=== PATIENT | male | born 1980 | race Caucasian/White ===

== ENCOUNTER 2016-07-12 16:27 | Emergency (ER) | payer OTHER ==
[2016-07-12 16:32] VITALS: BMI 31.9
[2016-07-12] MEDS ORDERED: KETOROLAC TROMETHAMINE 60 MG/2 ML VIAL IM ONE (17:56)
[2016-07-12] MEDS ORDERED: KETOROLAC TROMETHAMINE 60 MG/2 ML VIAL ONE (18:07)
--- NOTE | 2016-07-12 18:16 | PDOC ---
History of Present Illness - General Chief Complaint: Pain Stated Complaint: KIDNEY PAIN History Source: Patient Exam Limitations: No Limitations - History of Present Illness Travel History: No Initial Comments: 07/12/16 18:11 HPI: This 36-year-old male presents to the emergency room with complaints of left sided kidney pain. He apparently has had a kidney stone in the past. He's noted to have one in August 2015 according to the patient. He has excruciating pain when he initially came into the emergency room. Since then it has now subsided without any help of pain medications. He is unaware whether or not he has passed any kidney stone. He is able to urinate clear yellow urine. Chief Compliant: Left CV tenderness Pain location: Duration: Yesterday but has had it on and off for quite some time Modifying factors: Kidney stones in the past Quality: Sharp Radiating: To the left abdominal area Severity: Was a 10 out of 10 but now a 5 out of 10 Time: intermittent PMH: Kidney stones FH: Pt has not recently traveled outside the country in the last 30 days. Pt has not been in contact with people who have traveled out of the country, in contact with people who have been ill with fever, n, v, d. SH: smoking use: NONE illicit drug use: NONE alcohol use: NONE employment/educational status: sexual history: PSH: Home med use noted on AUG Allergies: NKA Immunizations: PCP: Does not have one Past History - Past Medical History Allergies/Adverse Reactions: Allergies Allergy/AdvReac Type Severity Reaction Status Date / Time No Known Allergies Allergy Verified 07/12/16 16:33 Home Medications: Ambulatory Orders Oxycodone HCl/Acetaminophen [Percocet 5/325 -] 1 - 2 tab PO Q4H #20 tablet 12/16 Sulfamethoxazole/Trimethoprim [Bactrim Ds -] 1 tab PO BID #20 tablet 12/16/14 Kidney Stones: Yes - Immunization History Immunization Up to Date: Yes - Psycho/Social/Smoking Cessation Hx Anxiety: No Suicidal Ideation: No Smoking History: Never smoked Hx Alcohol Use: Yes (social) Drug/Substance Use Hx: No Substance Use Type: Marijuana Review of Systems - Review of Systems Able to Perform ROS?: Yes Comments:: 07/12/16 18:12 General statement: Left-sided abdominal pain sharp radiating to the kidney Hematology: neg history of bleeding/blood thinners Skin: Neg for lesions, rash, bruising. HEENT: Neg symptoms Respiratory: Neg SOB or difficulty in breathing Cardiac: Neg chest pain GI: Neg pain, n/v : Neg problems on voiding as CV tenderness to the left side MS: Neg for joint pain/stiffness, no edema Neuro: Neg for LOC, weakness, Endocrine: Neg for excess thirst/hunger, cold/heat intolerance, excess sweating Allergies: Neg for allergies *Physical Exam - Vital Signs Last Vital Signs Temp Pulse Resp BP Pulse Ox 97.3 F L 93 H 20 128/75 100 07/12/16 16:30 07/12/16 16:30 07/12/16 16:30 07/12/16 16:30 07/12/16 16:30 - Physical Exam Comments: 07/12/16 18:13 General Appearance: This well appearing 86-year-old male V/S: hemodynamically stable, afebrile Skin: WNL of pt's skin color, no signs of pallor, mottling, cyanosis Head:symmetrical Eyes: EOM's intact, PERRLA Ears: denies pain Nose: patent Throat: lips, teeth, gums, tongue, buccal mucos pink and moist Lungs: Chest symmetry equal. Cap refill <3 seconds. Lung sounds clear Cardiac: PMI at R 4MCL space, pos S1 and S2, regular rate. Abdomen: Soft, round, nontender : Not observed has dark yellow urine without any sediment Muscularskeletal: Gait steady, ambulated in to ER, no edema +PMS Neuro: AAOx3, cognitively intact, speech clear and appropriate. ED Treatment Course - RADIOLOGY Radiology Studies Ordered: Category Date Time Status KIDNEY / RENAL US [US] Stat Ultrasound 07/12/16 17:56 Ordered - Medications Given in the ED: ED Medications Discontinued Medications Generic Name Dose Route Start Last Admin Trade Name Freq PRN Reason Stop Dose Admin Ketorolac Tromethamine 60 mg 07/12/16 17:56 07/12/16 18:05 Toradol Injection - IM 07/12/16 17:57 60 mg ONCE ONE Administration Medical Decision Making - Medical Decision Making 07/12/16 18:13 Patient was initially seen and examined. Patient states that upon his arrival he had complaints of left sided CV tenderness however at this time his pain has subsided. He has not received any pain medication as of yet. He has had a kidney stone in the past as of August 2015 a/p suggestive of possible passing of kidney stone on the left side. 1. ua/ 2. pain medicatiopn 3. kidney u/s r/o stone. I am signing this patient out to my colleague: MADAN Dangelo In brief, this patient is being seen in the ED for a chief complaint of: Left side cv pain and possible kidney stone I have completed the initial assessment interview note and have ordered:u/s , pain med and ua Plan for disposition is as follows: probable discharge home *DC/Admit/Observation/Transfer Diagnosis at time of Disposition: Kidney stone
[2016-07-12 18:51] VITALS: BP 167/85; PULSE 90; TEMP 97.6
[2016-07-12 19:08] LABS: URINE APPEARANCE CLEAR; URINE BILIRUBIN NEGATIVE (NEGATIVE); URINE BLOOD NEGATIVE (NEGATIVE); URINE COLOR YELLOW; URINE GLUCOSE (UA) NEGATIVE (NEGATIVE); URINE KETONE TRACE (NEGATIVE); URINE LEUK ESTERASE NEGATIVE (NEGATIVE); URINE NITRITE NEGATIVE (NEGATIVE); URINE PROTEIN NEGATIVE (NEGATIVE); URINE UROBILINOGEN NEGATIVE E.U./dl (0.2-1.0)
--- NOTE | 2016-07-12 19:12 | PDOC ---
*Physical Exam - Vital Signs Last Vital Signs Temp Pulse Resp BP Pulse Ox 97.6 F 90 20 167/85 99 07/12/16 18:49 07/12/16 18:49 07/12/16 18:49 07/12/16 18:49 07/12/16 18:49 - Physical Exam Comments: 07/12/16 19:11 Sign-out received from outgoing ER provider Len. Pt interviewed and examined. Ancillary studies reviewed. Awaiting ultrasound, UA. ED Treatment Course - Medications Given in the ED: ED Medications Discontinued Medications Generic Name Dose Route Start Last Admin Trade Name Freq PRN Reason Stop Dose Admin Ketorolac Tromethamine 60 mg 07/12/16 17:56 07/12/16 18:05 Toradol Injection - IM 07/12/16 17:57 60 mg ONCE ONE Administration *DC/Admit/Observation/Transfer Diagnosis at time of Disposition: Kidney stone, Calculus of left kidney - Discharge Dispostion Disposition: HOME Condition at time of disposition: Stable Admit: No - Referrals Referrals: Hesham Castellanos MD., MD [Staff Physician] - - Patient Instructions Printed Discharge Instructions: DI for Kidney Stones Additional Instructions: Please follow up with your primary care doctor. If you continue to have recurring kidney stones, please follow up with the urologist (referral provided) . IF you experience any recurrent severe pain, fever, nausea, vomiting, diarrhea, pain to your testicles, numbness to your legs, loss of sensation, or any new or worsening symptoms, please return to the ED.
== END 2016-07-12 19:46 | disposition home or self-care (01) ==
LOC: JER 16:27
PROC: 3E0233Z Introduction of Anti-inflammatory into Muscle, Percutaneous Approach (ICD-10-PCS; principal; 2016-07-12)
DX: N20.0 Calculus of kidney (principal); Z87.442 Personal history of urinary calculi
CPT/HCPCS: 76775-TC; 81003; 96372; 99283-25